=== PATIENT | female | born 1995 | race Caucasian/White ===

== ENCOUNTER 2024-07-06 21:13 | Emergency (ER) | payer OTHER ==
[~2024-07-06] VITALS: Ht 165.1 cm; Wt 77.1 kg
[2024-07-06] MEDS: IV NS 0.9% 1,000 ML BAG IV ONE (21:30)
[2024-07-06 21:50] LABS: BASOPHILS % (AUTO) 0.2 % (0.0-2.0); EOSINOPHILS # (AUTO) 0.1 K/uL (0.0-0.7); EOSINOPHILS % (AUTO) 0.7 % (0.0-6.0); HEMATOCRIT 36 % (33-45); HEMOGLOBIN 11.3 g/dL (11.5-14.8); LYMPHOCYTES # (AUTO) 1.3 K/uL (0.8-4.8); LYMPHOCYTES % (AUTO) 8.7 % (20.0-44.0); MEAN CORPUSCULAR HEMOGLOBIN 24 PG (26.0-33.0); MEAN CORPUSCULAR HGB CONC 31 g/dl (31.0-36.0); MEAN CORPUSCULAR VOLUME 75 fL (82-100); MONOCYTES # (AUTO) 0.6 K/uL (0.1-1.30); MONOCYTES % (AUTO) 4.2 % (2.0-12.0); NEUTROPHILS # (AUTO) 12.6 K/uL (1.8-8.9); NEUTROPHILS % (AUTO) 86.2 % (43.0-81.0); PLATELET COUNT (AUTO) 351 K/uL (150-450); RED BLOOD CELL COUNT(AUTO) 4.76 MIL/uL (4.0-5.2); RED CELL DISTRIBUTION WIDTH 16.4 % (11.5-15.0); WHITE BLOOD COUNT (AUTO) 14.6 K/uL (4.3-11.0)
[2024-07-06 21:57] LABS: CALCIUM, SERUM 9.2 mg/dL (8.5-10.1); CREATININE 0.6 mg/dL (0.6-1.3)
[2024-07-06 22:04] LABS: ALBUMIN 3.7 g/dL (3.4-5.0); BILIRUBIN,DIRECT 0.4 mg/dL (0.0-0.2); BILIRUBIN,TOTAL 0.8 mg/dL (0.2-1.0); TOTAL PROTEIN, SERUM 7.9 g/dL (6.4-8.2)
[2024-07-06] MEDS ORDERED: METOCLOPRAMIDE HCL 10 MG/2 ML VIAL ONE (23:31)
[2024-07-06] MEDS ORDERED: PANTOPRAZOLE 40 MG VIAL ONE (23:31)
[2024-07-06] MEDS ORDERED: MAG HYDROX/AL HYDROX/SIMETH 30 ML UDC ONE (23:31)
[2024-07-06] MEDS: MAG HYDROX/AL HYDROX/SIMETH 30 ML UDC PO ONE (23:34)
[2024-07-06] MEDS: PANTOPRAZOLE 40 MG VIAL IV ONE (23:34)
[2024-07-06] MEDS: METOCLOPRAMIDE HCL 10 MG/2 ML VIAL IV ONE (23:34)
[2024-07-07] MEDS ORDERED: PANT20TA2 PO (01:47)
[2024-07-07] MEDS ORDERED: FAMO20TA80 PO (01:47)
[2024-07-07] MEDS ORDERED: [UNRECOGNIZED DRUG - CODE] PO (01:47)
[2024-07-07 02:01] VITALS: BP 138/78; TEMP 98; O2SAT 100
== END 2024-07-07 02:06 | disposition home or self-care (01) ==
LOC: ER 22:31
DX: K80.20 Calculus of gallbladder without cholecystitis without obstruction (principal); K29.70 Gastritis, unspecified, without bleeding; R10.13 Epigastric pain; Z79.899 Other long term (current) drug therapy
CPT/HCPCS: 99285; 96374; 76705; 96361; 85025; 80048; 83690; 80076; 36415; J2765; J2470